=== PATIENT | female | born 1950 | race Caucasian/White ===

== ENCOUNTER 2016-07-10 22:05 | Emergency (ER) | payer BC, MEDICARE ==
[2016-07-10 22:12] VITALS: TEMP 97.5
[2016-07-10] MEDS ORDERED: KETOROLAC 60 MG/2 ML VIAL IVP STA (22:35)
--- NOTE | 2016-07-10 22:38 | ED ---
General Adult HPI - General Chief complaint: Urogenital Stated complaint: poss UTI Time Seen by Provider: 07/10/16 22:10 Source: patient, RN notes reviewed Mode of arrival: ambulatory Limitations: no limitations - History of Present Illness Initial comments: This is a 65-year-old female presents emergency Department stating that since yesterday she has been having dysuria and urinary frequency and urgency. Patient denies any hematuria. Patient also feels as though it is quite a bit of pressure down in her pelvic area. Patient denies any vaginal bleeding or discharge abnormally. Patient states she's noted her stools have been very pasty and black lately. Patient denies taking any medications [id number] or any prescribed medications. Patient denies any back pain. Patient denies any fever or chills. Patient denies any chest pain difficult breathing shortness of breath. Patient denies any nausea vomiting diarrhea. - Related Data Previous Rx's Medication Instructions Recorded Ciprofloxacin HCl [Cipro] 500 mg PO Q12HR #20 tablet 07/11/16 Phenazopyridine [Pyridium] 200 mg PO TID #9 tablet 07/11/16 Allergies Allergy/AdvReac Type Severity Reaction Status Date / Time codeine Allergy Rash/Hives Verified 10/02/15 17:30 Penicillins Allergy Rash/Hives Verified 10/02/15 17:30 nitroglycerin AdvReac Severe DECREASES Verified 10/02/15 17:30 BLOOD PRESSURE Review of Systems ROS Statement: Those systems with pertinent positive or pertinent negative responses have been documented in the HPI. ROS Other: All systems not noted in ROS Statement are negative. Past Medical History Past Medical History: Osteoarthritis (OA), Sleep Apnea/CPAP/BIPAP Additional Past Medical History / Comment(s): bradycardia, pacemaker, no CPAP, back pain History of Any Multi-Drug Resistant Organisms: None Reported Past Surgical History: Back Surgery, Heart Catheterization, Hysterectomy, Pacemaker, Tonsillectomy Additional Past Surgical History / Comment(s): pacemaker, hysterectomy, left wrist PLATE AND SCREWS, BACK SX HANY/PINS, PTCA Past Anesthesia/Blood Transfusion Reactions: No Reported Reaction Type of Cardiac Device: Permanent Pacemaker Device Placement Date:: 8334-6645 gen change, three replacements, most frequent was 2010 Past Psychological History: No Psychological Hx Reported Additional Psychological History / Comment(s): pt stated that upon waking this am felt very dizzy making her nauseated, felt like she was drunk. c/o chest pressure not pain. Smoking Status: Current every day smoker Past Alcohol Use History: None Reported Additional Past Alcohol Use History / Comment(s): Admits to smoking approximately one pack per day for the last 48 years. Past Drug Use History: None Reported - Past Family History Father Additional Family Medical History / Comment(s): at age 36 due to [place] Mother Additional Family Medical History / Comment(s): AGE 81 COPD/EMPHYSEMA, history of colon cancer General Exam - General Exam Comments Initial Comments: GENERAL: Patient is well-developed and well-nourished. Patient is nontoxic and well- hydrated and is in mild distress. ENT: Neck is soft and supple. No significant lymphadenopathy is noted. Oropharynx is clear. Moist mucous membranes. Neck has full range of motion without eliciting any pain. EYES: The sclera were anicteric and conjunctiva were pink and moist. Extraocular movements were intact and pupils were equal round and reactive to light. Eyelids were unremarkable. PULMONARY: Unlabored respirations. Good breath sounds bilaterally. No audible rales rhonchi or wheezing was noted. CARDIOVASCULAR: There is a regular rate and rhythm without any murmurs gallops or rubs. ABDOMEN: Soft and nontender with normal bowel sounds. No palpable organomegaly was noted. There is no palpable pulsatile mass. SKIN: Skin is clear with no lesions or rashes and otherwise unremarkable. NEUROLOGIC: Patient is alert and oriented x3. Cranial nerves II through XII are grossly intact. Motor and sensory are also intact. Normal speech, volume and content. Symmetrical smile. Cerebellar exam grossly intact. MUSCULOSKELETAL: Normal extremities with adequate strength and full range of motion. No lower extremity swelling or edema. No calf tenderness. No CVA tenderness LYMPHATICS: No significant lymphadenopathy is noted PSYCHIATRIC: Normal psychiatric evaluation. Pelvic exam On speculum exam I saw no obvious abnormalities on bimanual exam there did appear to be some fullness to the left adnexal area. I also did a rectal exam the stool was dark but no obvious blood. Limitations: no limitations Course Vital Signs 07/10/16 22:09 Temperature 97.5 F L Pulse Rate 94 Respiratory 20 Rate Blood Pressure 133/77 O2 Sat by Pulse 96 Oximetry Medical Decision Making - Medical Decision Making Ultrasound showed no acute abnormality. Patient a urinary tract infection I gave the patient Pyridium and Rocephin in the emergency department. - Lab Data Result diagrams: 07/10/16 22:45 07/10/16 22:45 Lab Results 07/10/16 07/10/16 07/10/16 Range/Units 22:21 22:45 22:45 WBC 14.1 H (3.8-10.6) k/uL RBC 4.42 (3.80-5.40) m/uL Hgb 13.2 (11.4-16.0) gm/dL Hct 39.7 (34.0-46.0) % MCV 89.9 (80.0-100.0) fL MCH 29.9 (25.0-35.0) pg MCHC 33.3 (31.0-37.0) g/dL RDW 13.4 (11.5-15.5) % Plt Count 285 (150-450) k/uL Neutrophils % 74 % Lymphocytes % 18 % Monocytes % 3 % Eosinophils % 2 % Basophils % 1 % Neutrophils # 10.5 H (1.3-7.7) k/uL Lymphocytes # 2.6 (1.0-4.8) k/uL Monocytes # 0.4 (0-1.0) k/uL Eosinophils # 0.3 (0-0.7) k/uL Basophils # 0.1 (0-0.2) k/uL PT (9.0-12.0) sec INR (<1.1) APTT (22.0-30.0) sec Sodium 139 (137-145) mmol/L Potassium 4.0 (3.5-5.1) mmol/L Chloride 106 (98-107) mmol/L Carbon Dioxide 21 L (22-30) mmol/L Anion Gap 12 mmol/L BUN 13 (7-17) mg/dL Creatinine 0.80 (0.52-1.04) mg/dL Est GFR (MDRD) Af Amer >60 (>60 ml/min/1.73 sqM) Est GFR (MDRD) Non-Af >60 (>60 ml/min/1.73 sqM) Glucose 139 H (74-99) mg/dL Calcium 9.8 (8.4-10.2) mg/dL Total Bilirubin 0.5 (0.2-1.3) mg/dL AST 27 (14-36) U/L ALT 31 (9-52) U/L Alkaline Phosphatase 68 (38-126) U/L Total Protein 7.8 (6.3-8.2) g/dL Albumin 4.3 (3.5-5.0) g/dL Urine Color Yellow Urine Appearance Cloudy H (Clear) Urine pH 6.5 (5.0-8.0) Ur Specific [employer] [place] 1.014 (1.001-1.035) Urine Protein 1+ H (Negative) Urine Glucose (UA) Negative (Negative) Urine Ketones Negative (Negative) Urine Blood Large H (Negative) Urine Nitrite Negative (Negative) Urine Bilirubin Negative (Negative) Urine Urobilinogen <2.0 (<2.0) mg/dL Ur Leukocyte Esterase Large H (Negative) Urine RBC >182 H (0-5) /hpf Urine WBC >182 H (0-5) /hpf Urine WBC Clumps Many H (None) /hpf Urine Mucus Rare H (None) /hpf Stool Occult Blood (Negative) 07/10/16 07/10/16 Range/Units 22:45 23:00 WBC (3.8-10.6) k/uL RBC (3.80-5.40) m/uL Hgb (11.4-16.0) gm/dL Hct (34.0-46.0) % MCV (80.0-100.0) fL MCH (25.0-35.0) pg MCHC (31.0-37.0) g/dL RDW (11.5-15.5) % Plt Count (150-450) k/uL Neutrophils % % Lymphocytes % % Monocytes % % Eosinophils % % Basophils % % Neutrophils # (1.3-7.7) k/uL Lymphocytes # (1.0-4.8) k/uL Monocytes # (0-1.0) k/uL Eosinophils # (0-0.7) k/uL Basophils # (0-0.2) k/uL PT 10.5 (9.0-12.0) sec INR 1.0 (<1.1) APTT 23.9 (22.0-30.0) sec Sodium (137-145) mmol/L Potassium (3.5-5.1) mmol/L Chloride (98-107) mmol/L Carbon Dioxide (22-30) mmol/L Anion Gap mmol/L BUN (7-17) mg/dL Creatinine (0.52-1.04) mg/dL Est GFR (MDRD) Af Amer (>60 ml/min/1.73 sqM) Est GFR (MDRD) Non-Af (>60 ml/min/1.73 sqM) Glucose (74-99) mg/dL Calcium (8.4-10.2) mg/dL Total Bilirubin (0.2-1.3) mg/dL AST (14-36) U/L ALT (9-52) U/L Alkaline Phosphatase (38-126) U/L Total Protein (6.3-8.2) g/dL Albumin (3.5-5.0) g/dL Urine Color Urine Appearance (Clear) Urine pH (5.0-8.0) Ur Specific [employer] [place] (1.001-1.035) Urine Protein (Negative) Urine Glucose (UA) (Negative) Urine Ketones (Negative) Urine Blood (Negative) Urine Nitrite (Negative) Urine Bilirubin (Negative) Urine Urobilinogen (<2.0) mg/dL Ur Leukocyte Esterase (Negative) Urine RBC (0-5) /hpf Urine WBC (0-5) /hpf Urine WBC Clumps (None) /hpf Urine Mucus (None) /hpf Stool Occult Blood Negative (Negative) Disposition Clinical Impression: Urinary tract infection Disposition: HOME SELF-CARE Condition: Good Instructions: Urinary Tract Infection in Women (ED) Prescriptions: Ciprofloxacin HCl [Cipro] 500 mg PO Q12HR #20 tablet Phenazopyridine [Pyridium] 200 mg PO TID #9 tablet Referrals: Maritza Pradhan DO [Primary Care Provider] - 1-2 days Time of Disposition: 00:05
[2016-07-10 22:39] LABS: Appearance,Urine Cloudy (Clear); Bilirubin,Urine Negative (Negative); Glucose,Urine (UA) Negative (Negative); Ketones,Urine Negative (Negative); Leukocyte Esterase,Urine Large (Negative); Mucus,Urine Rare /hpf; Nitrite,Urine Negative (Negative); PH, Urine 6.5 (5.0-8.0); Particle Count 4632; Protein,Urine 1+ (Negative); RBC,Urine >182 /hpf (0-5); Specific Gravity,Urine 1.014 (1.001-1.035); UA Billing (MACRO vs. MICRO) MICRO; Urobilinogen,Urine <2.0 mg/dL (<2.0); WBC,Urine >182 /hpf (0-5)
[2016-07-10] MEDS ORDERED: ACETAMINOPHEN TAB 500 MG TAB PO STA (22:39)
[2016-07-10 23:04] LABS: Basophils # (A) 0.1 k/uL (0-0.2); Basophils % (A) 1 %; CH 30.6; CHCM 34.2; Eosinophils # (A) 0.3 k/uL (0-0.7); Eosinophils % (A) 2 %; HCT 39.7 % (34.0-46.0); HDW 2.71; HGB 13.2 gm/dL (11.4-16.0); Luc # (Auto) 0.26; Luc % (Auto) 2; Lymphocytes # (A) 2.6 k/uL (1.0-4.8); Lymphocytes % (A) 18 %; MCH 29.9 pg (25.0-35.0); MCHC 33.3 g/dL (31.0-37.0); MCV 89.9 fL (80.0-100.0); Mean Platelet Volume 7.1; Monocytes # (A) 0.4 k/uL (0-1.0); Monocytes % (A) 3 %; Neutrophils # (A) 10.5 k/uL (1.3-7.7); Neutrophils % (A) 74 %; RBC 4.42 m/uL (3.80-5.40); RDW 13.4 % (11.5-15.5); WBC 14.1 k/uL (3.8-10.6); WBC (Perox) 14.23
[2016-07-10 23:12] LABS: ALT 31 U/L (9-52); AST 27 U/L (14-36); Alkaline Phosphatase 68 U/L (38-126); Anion Gap 12 mmol/L; Blood Urea Nitrogen 13 mg/dL (7-17); Calcium 9.8 mg/dL (8.4-10.2); Carbon Dioxide 21 mmol/L (22-30); Chloride 106 mmol/L (98-107); Glucose 139 mg/dL (74-99); Non-African American GFR(MDRD) >60 (>60 ml/min/1.73 sqM); Sodium 139 mmol/L (137-145); Total Bilirubin 0.5 mg/dL (0.2-1.3); Total Protein 7.8 g/dL (6.3-8.2)
[2016-07-10 23:15] LABS: Partial Thromboplastin Time 23.9 sec (22.0-30.0); Prothrombin Time 10.5 sec (9.0-12.0)
[2016-07-10] MEDS ORDERED: PHENAZOPYRIDINE 100 MG TAB PO STA (23:29)
--- NOTE | 2016-07-11 00:30 | US ---
EXAM: US Pelvis Complete, Transabdominal. CLINICAL HISTORY: Reason: Pain TECHNIQUE: Real-time transabdominal pelvic ultrasound (complete) with image documentation. COMPARISON: 03/04/15 CT. FINDINGS: Uterus/cervix: Post hysterectomy. Right ovary: Neither ovary is seen. Left ovary: See above. Free fluid: No adnexal mass or free fluid identified. Bladder: Bladder wall likely within normal limits given the underdistended urinary bladder, measuring under 5 mm. IMPRESSION: No specific source of the patient's pelvic pain detected, as above.
[2016-07-11 00:46] VITALS: BP 106/56; PULSE 68; RESP 16
== END 2016-07-11 00:45 | disposition home or self-care (01) ==
LOC: EC 22:05
DX: N39.0 Urinary tract infection, site not specified (principal); F17.200 Nicotine dependence, unspecified, uncomplicated; Z95.0 Presence of cardiac pacemaker; Z88.0 Allergy status to penicillin; Z88.8 Allergy status to other drugs, medicaments and biological substances
CPT/HCPCS: 99284 ×2; 96365 ×2; 36415; 80053; 85025; 85610; 85730; 82272; 81001; 87086; 87077; 87186; 76857; J0696

== ENCOUNTER 2018-05-15 14:05 | Emergency (ER) | payer BC, MEDICARE ==
[2018-05-15 14:12] VITALS: BP 124/81; PULSE 89; RESP 18; TEMP 97.6
--- NOTE | 2018-05-15 14:23 | ED ---
ENT HPI - General Chief complaint: ENT Stated complaint: Throat pain Time Seen by Provider: 05/15/18 14:14 Source: patient, RN notes reviewed Mode of arrival: ambulatory Limitations: no limitations - History of Present Illness Initial comments: 67-year-old female presents emergency Department with chief complaint of worsening symptoms and sore throat for one month. 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 She states she is able to finally take care of herself today and came in for sore throat. Patient reports no recent fevers or chills. Denies any difficulty swallowing. She states it does come and go. She also has associated cough. She is a former smoker. Patient denies any current chest pain or shortness of breath. Patient denies any nausea vomiting diarrhea constipation no reflux symptoms. She has not tried any [id number] cough and cold symptoms. - Related Data Previous Rx's Medication Instructions Recorded Ciprofloxacin HCl [Cipro] 500 mg PO Q12HR #20 tablet 07/11/16 Phenazopyridine [Pyridium] 200 mg PO TID #9 tablet 07/11/16 Azithromycin [Zithromax Z-pack] 0 mg PO DIRECTED #1 pack 05/15/18 guaiFENesin-DM 100-10MG/5ML 10 ml PO TID #1 bottle 05/15/18 [Robitussin DM] predniSONE 50 mg PO DAILY #5 tab 05/15/18 Allergies Allergy/AdvReac Type Severity Reaction Status Date / Time codeine Allergy Rash/Hives Verified 05/15/18 14:12 Penicillins Allergy Rash/Hives Verified 05/15/18 14:12 nitroglycerin AdvReac Severe DECREASES Verified 05/15/18 14:12 BLOOD PRESSURE Review of Systems ROS Statement: Those systems with pertinent positive or pertinent negative responses have been documented in the HPI. ROS Other: All systems not noted in ROS Statement are negative. Past Medical History Past Medical History: Osteoarthritis (OA), Sleep Apnea/CPAP/BIPAP Additional Past Medical History / Comment(s): bradycardia, pacemaker, no CPAP, back pain History of Any Multi-Drug Resistant Organisms: None Reported Past Surgical History: Back Surgery, Heart Catheterization, Hysterectomy, Pacemaker, Tonsillectomy Additional Past Surgical History / Comment(s): pacemaker, hysterectomy, left wrist PLATE AND SCREWS, BACK SX HANY/PINS, PTCA Past Anesthesia/Blood Transfusion Reactions: No Reported Reaction Type of Cardiac Device: Permanent Pacemaker Device Placement Date:: 7508-8194 gen change, three replacements, most frequent was 2010 Past Psychological History: No Psychological Hx Reported Smoking Status: Current every day smoker Past Alcohol Use History: None Reported Past Drug Use History: None Reported - Past Family History Father Additional Family Medical History / Comment(s): at age 36 due to [place] Mother Additional Family Medical History / Comment(s): AGE 81 COPD/EMPHYSEMA, history of colon cancer General Exam Limitations: no limitations General appearance: alert, in no apparent distress Head exam: Present: atraumatic, normocephalic, normal inspection Eye exam: Present: normal appearance, PERRL, EOMI. Absent: scleral icterus, conjunctival injection, periorbital swelling ENT exam: Present: mucous membranes moist, TM's normal bilaterally, normal external ear exam. Absent: normal oropharynx (Mild erythema posterior pharynx) Neck exam: Present: normal inspection, full ROM. Absent: tenderness, meningismus, lymphadenopathy Respiratory exam: Present: normal lung sounds bilaterally. Absent: respiratory distress, wheezes, rales, rhonchi, stridor, chest wall tenderness Cardiovascular Exam: Present: regular rate, normal rhythm, normal heart sounds. Absent: systolic murmur, diastolic murmur, rubs, gallop, clicks GI/Abdominal exam: Present: soft, normal bowel sounds. Absent: distended, tenderness, guarding, rebound, rigid Course Vital Signs 05/15/18 14:09 Temperature 97.6 F Pulse Rate 89 Respiratory 18 Rate Blood Pressure 124/81 O2 Sat by Pulse 98 Oximetry Medical Decision Making - Medical Decision Making 67-year-old female presented for laryngitis. Patient symptoms have been present for 1 month. Patient was given a course of steroids and antibiotics at this time x-rays were obtained which show no acute abnormality. I did explain my concerns for possible laryngeal or esophageal issues including cancer. She is a former smoker. She is advised that she needs to follow up immediately with ENT. Disposition Clinical Impression: Acute laryngitis, Acute pharyngitis Disposition: HOME SELF-CARE Condition: Stable Instructions (If sedation given, give patient instructions): Laryngitis (ED) Additional Instructions: Follow-up with ENT for further evaluation.Please return to the Emergency Department if symptoms worsen or any other concerns. Prescriptions: Azithromycin [Zithromax Z-pack] 0 mg PO DIRECTED #1 pack guaiFENesin-DM 100-10MG/5ML [Robitussin DM] 10 ml PO TID #1 bottle predniSONE 50 mg PO DAILY #5 tab Is patient prescribed a controlled substance at d/c from ED?: No Referrals: Maritza Pradhan DO [Primary Care Provider] - 1-2 days Nilay Cox MD [STAFF PHYSICIAN] - 1-2 days Time of Disposition: 14:46
--- NOTE | 2018-05-15 14:41 | XR ---
EXAMINATION TYPE: XR chest 2V DATE OF EXAM: 05/15/2018 COMPARISON: Chest x-ray August 12, 2014 HISTORY: Cough and chest pain. TECHNIQUE: Frontal and lateral views of the chest are obtained. FINDINGS: There is no focal air space opacity, pleural effusion, or pneumothorax seen. Underlying e mphysematous change is not excluded. The cardiac silhouette size is within normal limits. Dual lead p acemaker is redemonstrated. The osseous structures are somewhat demineralized. IMPRESSION: No acute cardiopulmonary process. No significant change from prior.
--- NOTE | 2018-05-15 14:44 | XR ---
Soft tissue neck HISTORY: Cough, hoarseness 2 views of the neck The airway is patent. Epiglottis shows a normal appearance in profile. Patient is edentulous. Bone mi neralization is reduced. Cervical vertebral bodies show preserved height. There is anterolisthesis gr chad 1 C2-3. Loss of disc height present C3-4, C4-5, C5-6 and C6-7. C7-T1 not well seen. There is face t arthropathy. There is multilevel spondylosis. Prevertebral soft tissues are normal. IMPRESSION: Degenerative disc disease. Airway is patent.
== END 2018-05-15 15:01 | disposition home or self-care (01) ==
LOC: EC 14:05
DX: J04.0 Acute laryngitis (principal); J02.9 Acute pharyngitis, unspecified; G47.30 Sleep apnea, unspecified; Z95.0 Presence of cardiac pacemaker; Z95.818 Presence of other cardiac implants and grafts; Z90.89 Acquired absence of other organs; Z98.61 Coronary angioplasty status; Z87.891 Personal history of nicotine dependence; Z88.5 Allergy status to narcotic agent; Z88.0 Allergy status to penicillin; Z88.8 Allergy status to other drugs, medicaments and biological substances
CPT/HCPCS: 70360; 71046; 99283

== ENCOUNTER 2018-06-27 13:51 | Inpatient (IN) | payer MEDICARE ==
[2018-06-27] MEDS ORDERED: IPRATROPIUM-ALBUTEROL 3 ML NEB INHALATION STA (14:10)
--- NOTE | 2018-06-27 14:27 | ED ---
Chest Pain HPI - General Chief Complaint: Chest Pain Stated Complaint: chest pain Time Seen by Provider: 06/27/18 13:58 Source: patient, RN notes reviewed Mode of arrival: EMS Limitations: no limitations - History of Present Illness Initial Comments: 67-year-old female presenting for evaluation of chest pain, chest pain began proximally 4 hours prior to arrival. She has no history of CAD, no history of diabetes or hypertension. She was given aspirin and nitroglycerin prior to arrival by EMS. Pain initially began as dull substernal chest pressure. She states that at the time my evaluation her pain is resolved, she has some mild residual chest tightness. - Related Data Home Medications Medication Instructions Recorded Confirmed No Known Home Medications 06/27/18 06/27/18 Allergies Allergy/AdvReac Type Severity Reaction Status Date / Time codeine Allergy Rash/Hives Verified 06/27/18 14:17 Penicillins Allergy Rash/Hives Verified 06/27/18 14:17 nitroglycerin AdvReac Severe DECREASES Verified 06/27/18 14:17 BLOOD PRESSURE Review of Systems ROS Statement: Those systems with pertinent positive or pertinent negative responses have been documented in the HPI. ROS Other: All systems not noted in ROS Statement are negative. Past Medical History Past Medical History: Osteoarthritis (OA), Sleep Apnea/CPAP/BIPAP Additional Past Medical History / Comment(s): bradycardia, pacemaker, no CPAP, back pain History of Any Multi-Drug Resistant Organisms: None Reported Past Surgical History: Back Surgery, Heart Catheterization, Hysterectomy, Pacemaker, Tonsillectomy Additional Past Surgical History / Comment(s): pacemaker, hysterectomy, left wrist PLATE AND SCREWS, BACK SX HANY/PINS, PTCA Past Anesthesia/Blood Transfusion Reactions: No Reported Reaction Type of Cardiac Device: Permanent Pacemaker Device Placement Date:: 5928-3120 gen change, three replacements, most frequent was 2010 Past Psychological History: No Psychological Hx Reported Smoking Status: Current every day smoker Past Alcohol Use History: None Reported Past Drug Use History: None Reported - Past Family History Father Additional Family Medical History / Comment(s): at age 36 due to [place] Mother Additional Family Medical History / Comment(s): AGE 81 COPD/EMPHYSEMA, history of colon cancer General Exam Limitations: no limitations General appearance: alert, in no apparent distress Head exam: Present: atraumatic, normocephalic Eye exam: Present: normal appearance, PERRL ENT exam: Present: normal exam Neck exam: Present: normal inspection. Absent: tenderness, meningismus Respiratory exam: Present: wheezes (Spastic cough). Absent: respiratory distress Cardiovascular Exam: Present: regular rate, normal rhythm GI/Abdominal exam: Present: soft, normal bowel sounds. Absent: distended, tenderness, guarding, rebound, rigid Extremities exam: Present: normal inspection, normal capillary refill. Absent: pedal edema, calf tenderness Neurological exam: Present: alert, oriented X3, CN II-XII intact. Absent: motor sensory deficit Psychiatric exam: Present: normal affect, normal mood Skin exam: Present: warm, dry, intact. Absent: cyanosis, diaphoretic Course Vital Signs 06/27/18 06/27/18 06/27/18 14:00 14:04 14:10 Temperature 97.7 F Pulse Rate 61 56 L Respiratory 12 16 Rate Blood Pressure 111/72 111/72 O2 Sat by Pulse 96 96 Oximetry 06/27/18 06/27/18 06/27/18 14:20 14:25 14:30 Temperature Pulse Rate 59 L Respiratory Rate Blood Pressure O2 Sat by Pulse 98 99 Oximetry 06/27/18 06/27/18 06/27/18 14:34 14:50 15:00 Temperature Pulse Rate 59 L 71 77 Respiratory 20 27 H Rate Blood Pressure 103/64 103/64 O2 Sat by Pulse 93 L 99 Oximetry 06/27/18 06/27/18 06/27/18 15:10 15:20 15:30 Temperature Pulse Rate 62 61 64 Respiratory 16 16 14 Rate Blood Pressure 109/68 112/67 112/67 O2 Sat by Pulse 94 L 90 L 86 L Oximetry 06/27/18 06/27/18 06/27/18 15:40 15:50 16:00 Temperature Pulse Rate 63 62 64 Respiratory 16 13 16 Rate Blood Pressure 110/61 107/62 107/62 O2 Sat by Pulse 89 L 90 L 93 L Oximetry - Reevaluation(s) Reevaluation #1: 06/27/18 1407 EKG: Sinus bradycardia, rate 56, MO interval 170, QRS duration 72, QTC 413, no ST segment changes Reevaluation #2: 06/27/18 1503 EKG repeated with increasing chest pain, sinus bradycardia, rate of 57, MO interval 174, QRS duration 74, QTC 412, no definitive signs of ischemia. Chest Pain MDM - MDM 67-year-old female presenting for evaluation of chest pain. Chest pain is chest tightness and pressure. Initial EKG nonischemic, chest x-ray negative for acute cardiopulmonary disease, normal CBC, normal CMP, initial troponin is negative. Given the patient's risk factors, she will be kept in observation, serial cardiac enzymes, telemetry, cardiology consultation. Patient is evaluated by admitting physician Dr. Linda in the emergency department. Disposition Clinical Impression: Chest pain Disposition: ADMITTED IP TO THIS HOSP Condition: Stable Is patient prescribed a controlled substance at d/c from ED?: No Referrals: Maritza Pradhan DO [Primary Care Provider] - 1-2 days Decision to Admit Reason: Admit from EC Decision Date: 06/27/18 Decision Time: 16:50
[2018-06-27 14:47] LABS: Basophils # (A) 0.1 k/uL (0-0.2); Basophils % (A) 1 %; Eosinophils # (A) 0.3 k/uL (0-0.7); Eosinophils % (A) 4 %; Lymphocytes # (A) 2.2 k/uL (1.0-4.8); Lymphocytes % (A) 29 %; MCH 29.2 pg (25.0-35.0); MCHC 33.3 g/dL (31.0-37.0); MCV 87.5 fL (80.0-100.0); Mean Platelet Volume 8.2; Monocytes # (A) 0.3 k/uL (0-1.0); Monocytes % (A) 5 %; Neutrophils # (A) 4.6 k/uL (1.3-7.7); Neutrophils % (A) 61 %; Platelet Count 303 k/uL (150-450); RBC 4.46 m/uL (3.80-5.40); RDW 14.5 % (11.5-15.5); WBC 7.6 k/uL (3.8-10.6)
[2018-06-27 14:50] LABS: ALT 24 U/L (9-52); AST 21 U/L (14-36); Albumin 3.9 g/dL (3.5-5.0); Alkaline Phosphatase 73 U/L (38-126); Anion Gap 7 mmol/L; Blood Urea Nitrogen 12 mg/dL (7-17); Calcium 9.5 mg/dL (8.4-10.2); Carbon Dioxide 23 mmol/L (22-30); Chloride 109 mmol/L (98-107); Glucose 102 mg/dL (74-99); Lipase 62 U/L (23-300); Magnesium 1.8 mg/dL (1.6-2.3); Potassium 4.2 mmol/L (3.5-5.1); Sodium 139 mmol/L (137-145); Total Bilirubin 0.4 mg/dL (0.2-1.3); Total Protein 6.8 g/dL (6.3-8.2)
--- NOTE | 2018-06-27 14:50 | XR ---
EXAMINATION TYPE: XR chest 2V DATE OF EXAM: 06/27/2018 COMPARISON: Chest x-ray May 15, 2018 HISTORY: Chest pain. TECHNIQUE: Frontal and lateral views of the chest are obtained. FINDINGS: Underlying emphysematous change is suspected. There is no focal air space opacity, pleural effusion, or pneumothorax seen. The cardiac silhouette size remains within normal limits with dual l ead pacemaker. The osseous structures are intact. IMPRESSION: No acute cardiopulmonary process. No significant change from prior.
[2018-06-27 14:54] LABS: INR 0.9 (<1.2); Partial Thromboplastin Time 25.5 sec (22.0-30.0); Prothrombin Time 10.1 sec (9.0-12.0)
[2018-06-27] MEDS ORDERED: MAG HYDROX/AL HYDROX/SIMETH 30 ML, HYOSCYAMINE ELIXIR 10 ML, CIMETIDINE HCL 300 MG PO STA ×3 (14:59)
[2018-06-27] MEDS ORDERED: MORPHINE SULFATE 4 MG/0.8 ML SYRINGE (INJ) IVP STA (14:59)
[2018-06-27] MEDS ORDERED: HYDROmorphone 1 MG/ML 1 ML SYRINGE IVP STA (15:00)
[2018-06-27] MEDS ORDERED: HYDROmorphone 0.5 MG/0.5 ML SYRINGE IVP STA (16:41)
[2018-06-27] MEDS ORDERED: ONDANSETRON 4 MG/2 ML VIAL IVP PRN (16:43)
[2018-06-27] MEDS ORDERED: NALOXONE 0.4 MG/ML 1 ML VIAL IV PRN (16:43)
[2018-06-27] MEDS ORDERED: PANTOPRAZOLE 40 MG/10 ML VIAL IV STA (16:52)
--- NOTE | 2018-06-27 17:52 | CT ---
EXAMINATION TYPE: CT angio chest DATE OF EXAM: 06/27/2018 5:25 PM COMPARISON: None HISTORY: Chest pressure. CT DLP: 281.5 mGycm Automated exposure control for dose reduction was used. CONTRAST: CTA scan of the thorax is performed with IV Contrast, patient injected with 69 mL of Isovue 370, pulm onary embolism protocol. There are 3-D post processed images.. FINDINGS: There is mild pulmonary emphysema. There is subpleural coarse reticular density in both lungs probabl y due to pulmonary fibrosis. There is no evidence of a pulmonary mass. There is no pleural effusion. Heart size is normal. There is no pericardial effusion. There is no mediastinal adenopathy. There are no hilar masses. There is normal contrast opacification of the pulmonary arteries. There are no filling defects. The b giselle thorax appears intact. IMPRESSION: NO EVIDENCE OF PULMONARY EMBOLISM. MILD EMPHYSEMA AND PULMONARY FIBROTIC CHANGES.
[2018-06-27] MEDS ORDERED: ALPRAZolam 0.25 MG TAB PO PRN (19:04)
[2018-06-27] MEDS ORDERED: TEMAZEPAM 15 MG CAP PO PRN (19:04)
[2018-06-27] MEDS ORDERED: ACETAMINOPHEN TAB 500 MG TAB PO PRN (19:04)
[2018-06-27 20:15] LABS: Appearance,Urine Clear (Clear); Bilirubin,Urine Negative (Negative); Blood,Urine Negative (Negative); Color,Urine Colorless; Glucose,Urine (UA) Negative (Negative); Ketones,Urine Negative (Negative); Leukocyte Esterase,Urine Negative (Negative); Nitrite,Urine Negative (Negative); PH, Urine 6.5 (5.0-8.0); Protein,Urine Negative (Negative); Specific Gravity,Urine 1.004 (1.001-1.035); Urobilinogen,Urine <2.0 mg/dL (<2.0)
--- NOTE | 2018-06-27 21:12 | HP ---
HISTORY AND PHYSICAL DATE OF SERVICE: 06/27/2018 CHIEF COMPLAINT: Chest pain. HISTORY OF PRESENT ILLNESS: This 67-year-old woman with a past medical history of multiple medical problems including DJD, history of sleep apnea, history of bradycardia, history of pacemaker, history of CPAP, back pain, DJD, cardiac catheterization and as well as arthrectomy, being followed by Dr. Pradhan in the outpatient setting, was complaining of severe chest pain, chest pain felt in the anterior part of the chest. Patient felt heavy and felt like somebody was sitting on the chest. Subsequently, patient also had difficulty in the throat also. The patient came to [facility] and was admitted for further evaluation and treatment. EMT administered aspirin, nitro, the troponins are negative. First troponins are negative and the EKG did not show any acute abnormality except some bradycardia. Patient also had a CT angio which showed no evidence of pulmonary embolism. There is no history of fever, rigors or chills. No history of headache, loss of consciousness or seizures. The patient also complaining of abdominal pain and diarrhea for the last 1 month, especially with some increased gastrocolic reflex. PAST MEDICAL HISTORY: History of sleep apnea, DJD, history of pacemaker, history of back pain, DJD. MEDICATIONS: Prior to admission include home medications are none. ALLERGIES: CODEINE, PENICILLIN, NITRO. FAMILY HISTORY: History of myocardial infarction in the family. SOCIAL HISTORY: History of smoking. No history of alcohol intake. The patient apparently taking care of four teenage kids and the patient is under some stress because of apparent lack of parental support. REVIEW OF SYSTEMS: ENT: No diminished hearing. No diminished vision. CARDIOVASCULAR: As mentioned earlier. RESPIRATORY: As mentioned earlier. GI no nausea or vomiting. no dysuria. NERVOUS SYSTEM: No numbness or weakness. ALLERGY/IMMUNOLOGY: No asthma or hayfever. MUSCULOSKELETAL: As mentioned earlier. HEMATOLOGY/ONCOLOGY: No history of anemia. ENDOCRINE: No history of diabetes or hypothyroidism. Constitutional: As mentioned earlier. Dermatology: Negative. Rheumatology: Negative. Psychiatry: As mentioned earlier. PHYSICAL EXAM: Patient is alert, oriented x3. Pulse is 58, blood pressure 109/77. Respiratory rate 13, temperature normal. Pulse ox 97% on room air. HEENT: Conjunctivae normal. NECK: No jugular venous distention. CARDIOVASCULAR: S1, S2 muffled. RESPIRATORY: Breath sounds diminished in the bases. No rhonchi and no crackles. ABDOMEN: Soft, obese, nontender. No mass palpable. LEGS no edema. No swelling. NERVOUS SYSTEM: Higher functions as mentioned earlier. Moves all 4 limbs. No focal deficits. Lymphatics: No lymph nodes palpable in the neck, axillae or groin. JOINTS: No active deforming arthropathy. SKIN: Noted. No ulcer. No rash. No bleeding. LABS: CBC within normal limits. Sodium 130. Potassium 4.2. ASSESSMENT: 1. Chest pain possible unstable angina. 2. Acute to subacute diarrhea, rule out infective diarrhea. 3. History of degenerative joint disease. 4. History of sleep apnea. 5. History of bradycardia status post pacemaker. 6. History of coronary artery disease with cardiac and arthrectomy previously. 7. History of pacemaker. 8. Tonsillectomy. 9. Social stressors. 10.Nicotine dependence. RECOMMENDATIONS AND DISCUSSION: In this 67-year-old woman who presented with multiple complex medical issues, we will monitor the patient closely, continue the current medications, management and symptomatic treatment. Otherwise, at this time, I recommend to monitor the patient closely and acute coronary syndrome protocol. Cardiology consultation. Rule out myocardial infarction. The patient will need further workup including either a stress test or cardiac catheterization. The patient also has some diarrhea. I would also recommend a Gastroenterology consultation as an outpatient. We will check C difficile at this time. Otherwise, continue to monitor. Guarded prognosis because of multiple complex medical issues. Further recommendations to follow. A copy of dictation being forwarded to Dr. Pradhan who is the primary physician. FROILAN / KHLOE: [id number] /
[2018-06-27] MEDS: HEPARIN SODIUM,PORCINE 5,000 UNIT/ML 1 ML VIAL SQ SCH (23:05)
[2018-06-28 09:37] LABS: Basophils # (A) 0.1 k/uL (0-0.2); Basophils % (A) 1 %; Eosinophils # (A) 0.3 k/uL (0-0.7); Eosinophils % (A) 6 %; HCT 38.7 % (34.0-46.0); HGB 12.8 gm/dL (11.4-16.0); Lymphocytes # (A) 1.7 k/uL (1.0-4.8); Lymphocytes % (A) 31 %; MCH 29.6 pg (25.0-35.0); MCHC 33.1 g/dL (31.0-37.0); MCV 89.5 fL (80.0-100.0); Mean Platelet Volume 7.8; Monocytes # (A) 0.3 k/uL (0-1.0); Monocytes % (A) 5 %; Neutrophils % (A) 55 %; Platelet Count 267 k/uL (150-450); RBC 4.32 m/uL (3.80-5.40); RDW 14.1 % (11.5-15.5); WBC 5.5 k/uL (3.8-10.6)
[2018-06-28 10:09] LABS: Calcium 9.2 mg/dL (8.4-10.2); Potassium 4.5 mmol/L (3.5-5.1)
[2018-06-28] MEDS: PANTOPRAZOLE 40 MG/10 ML VIAL IV SCH (10:09)
[2018-06-28] MEDS: HEPARIN SODIUM,PORCINE 5,000 UNIT/ML 1 ML VIAL SQ SCH ×2 (10:09→20:50)
[2018-06-28] MEDS ORDERED: DOBUTamine DRIP for NUC MED 500 MG in DEXTROSE/WATER 1 250ML.BAG IV ONE (10:16)
[2018-06-28] MEDS: HYDROmorphone 0.5 MG/0.5 ML SYRINGE IVP PRN (10:16)
[2018-06-28] MEDS ORDERED: BISACODYL 5 MG TABLET.DR PO STA (11:59)
--- NOTE | 2018-06-28 12:04 | P.CONS ---
History of Present Illness - Reason for Consult Consult date: 06/28/18 Epigastric chest pain nonbloody diarrhea Requesting physician: Maxim Linda - Chief Complaint Chest pain - History of Present Illness 67-year-old female with a history of pacemaker bradycardia COPD CAD with angioplasty sleep apnea CPAP chronic back pain admitted with multiple complaints including chest pain epigastric discomfort as well as postprandial nonbloody diarrhea several times a day for the last 4-6 weeks. EKG showed no acute abnormality. First the troponins were negative. CT showed no evidence of pulmonary embolus and. Patient states cardiology is evaluating her pacemaker. In regards to diarrhea patient's been having multiple nonbloody bowel movements especially after eating for 4-6 weeks' duration with minimal abdominal discomfort. She cares for 4 grandchildren makes it difficult to seek medical care in the outpatient setting. She has no history of diarrhea in fact she has a history of constipation. In regards to her epigastric chest pain she's had increased GERD-like symptoms preceding admission. No emesis. No current PPI therapy. No weight loss. She is a history of EGD colonoscopy but it's remote at least 10 years ago. Denies fever or chills. No recent travels. No recent antibiotics. No sick contacts. White count 5.5-7.6. Hemoglobin 12.8. INR 0.9. BUN 12 creatinine 0.7. Troponin 3 less than 0.012. LFTs normal. Lipase 62. Review of Systems Constitutional: Denies fever, chills, sweats, weight gain, or loss. HEENT: Negative for migraines, blurred vision or loss, earaches, drainage, tinnitus, oral mucosal lesions, dysphagia, or odynophagia. CARDIAC: Positive denies for chest pain, arrhythmias, or palpitation. RESPIRATORY: Negative for shortness of breath, hemoptysis, cough, or sputum production. GI: See HPI for pertinent findings. : Negative for hematuria, urgency, frequency, polyuria, or dysuria. GYNc: Negative vaginal discharge. MUSCULOSKELETAL: Negative for muscle aches, swelling, arthritis, and arthralgias. NEUROLOGIC: Negative for stroke or TIA. ENDOCRINE: Negative for thyroid problems. SKIN: Negative for rash or itching. PSYCHIATRIC: Negative history for depression and anxiety Past Medical History Past Medical History: Osteoarthritis (OA), Sleep Apnea/CPAP/BIPAP Additional Past Medical History / Comment(s): bradycardia, pacemaker, no CPAP, back pain History of Any Multi-Drug Resistant Organisms: None Reported Past Surgical History: Back Surgery, Heart Catheterization, Hysterectomy, Pacemaker, Tonsillectomy Additional Past Surgical History / Comment(s): pacemaker, hysterectomy, left wrist PLATE AND SCREWS, BACK SX HANY/PINS, PTCA Past Anesthesia/Blood Transfusion Reactions: No Reported Reaction Type of Cardiac Device: Permanent Pacemaker Device Placement Date:: 5337-6463 gen change, three replacements, most frequent was 2010 Smoking Status: Former smoker - Past Family History Father Additional Family Medical History / Comment(s): at age 36 due to [place] Mother Additional Family Medical History / Comment(s): AGE 81 COPD/EMPHYSEMA, history of colon cancer Medications and Allergies Home Medications Medication Instructions Recorded Confirmed Type No Known Home Medications 06/27/18 06/27/18 History Allergies Allergy/AdvReac Type Severity Reaction Status Date / Time codeine Allergy Rash/Hives Verified 06/27/18 22:19 Penicillins Allergy Rash/Hives Verified 06/27/18 22:19 nitroglycerin AdvReac Severe DECREASES Verified 06/27/18 22:19 BLOOD PRESSURE Physical Exam Vitals: Vital Signs Temp Pulse Pulse Pulse Pulse Resp BP 06/28/18 08:00 97.6 F 65 18 06/28/18 03:56 98.2 F 50 L 15 06/28/18 03:27 15 06/27/18 22:42 15 06/27/18 22:16 98.1 F 62 15 06/27/18 21:30 55 L 16 105/74 06/27/18 21:00 53 L 14 110/74 06/27/18 20:30 55 L 16 100/75 06/27/18 20:00 54 L 16 102/82 06/27/18 19:30 52 L 16 94/62 06/27/18 17:39 58 L 13 109/73 06/27/18 16:00 64 16 107/62 06/27/18 15:50 62 13 107/62 06/27/18 15:40 63 16 110/61 06/27/18 15:30 64 14 112/67 06/27/18 15:20 61 16 112/67 06/27/18 15:10 62 16 109/68 06/27/18 15:00 77 27 H 103/64 06/27/18 14:50 71 20 103/64 06/27/18 14:34 59 L 06/27/18 14:30 06/27/18 14:25 59 L 06/27/18 14:20 06/27/18 14:10 111/72 06/27/18 14:04 97.7 F 56 L 16 111/72 06/27/18 14:00 61 12 BP Pulse Ox 06/28/18 08:00 113/79 96 06/28/18 03:56 91/54 96 06/28/18 03:27 06/27/18 22:42 06/27/18 22:16 116/70 99 06/27/18 21:30 93 L 06/27/18 21:00 93 L 06/27/18 20:30 97 06/27/18 20:00 95 06/27/18 19:30 92 L 06/27/18 17:39 97 06/27/18 16:00 93 L 06/27/18 15:50 90 L 06/27/18 15:40 89 L 06/27/18 15:30 86 L 06/27/18 15:20 90 L 06/27/18 15:10 94 L 06/27/18 15:00 99 06/27/18 14:50 93 L 06/27/18 14:34 06/27/18 14:30 99 06/27/18 14:25 06/27/18 14:20 98 06/27/18 14:10 06/27/18 14:04 96 06/27/18 14:00 96 Intake and Output 06/27/18 06/28/18 06/28/18 22:59 06:59 14:59 Other: Voiding Method Toilet Toilet Toilet # Voids 2 General appearance: The patient is alert, oriented, in no acute distress. HET: Head is normocephalic and atraumatic. Pupils are equal and reactive. Oropharynx is clear without lesions. Neck: Supple without lymphadenopathy. Trachea midline. Heart: S1 S2. Regular rate and rhythm. Lungs: No crackles or wheezes are heard. Abdomen: Soft, mild midepigastric tenderness, nondistended with bowel sounds. No peritoneal signs. No palpable organomegaly or masses. Extremities: Normal skin color and turgor. No cyanosis, rash, ulceration, clubbing, or edema. Radial and pedal pulses are 2/4 bilaterally. Neurological: No focal deficits. Strength and sensation are grossly intact. Results CBC & Chem 7: 06/28/18 08:41 06/28/18 08:41 Labs: Abnormal Lab Results - Last 24 Hours (Table) 06/27/18 06/28/18 Range/Units 14:13 08:41 Chloride 109 H 112 H (98-107) mmol/L Carbon Dioxide 19 L (22-30) mmol/L Glucose 102 H 108 H (74-99) mg/dL CT scan - chest: report reviewed (Dr. Garibay) Assessment and Plan (1) Diarrhea Narrative/Plan: 67-year-old female with a history of pacemaker bradycardia CAD with previous angioplasty presents with multiple symptoms of chest pain epigastric pain and indigestion as well as postprandial nonbloody diarrhea for 6 weeks' duration. Possible underlying GERD exacerbation possible IBS-D possible self limiting infectious colitis possible collagenous colitis. Current Visit: Yes Status: Acute Code(s): R19.7 - DIARRHEA, UNSPECIFIED SNOMED Code(s): 41039535 (2) Epigastric pain Current Visit: Yes Status: Acute Code(s): R10.13 - EPIGASTRIC PAIN SNOMED Code(s): 03132645 (3) Chest pain Current Visit: Yes Status: Acute Code(s): R07.9 - CHEST PAIN, UNSPECIFIED SNOMED Code(s): 13045982 Plan: 1. Patient states her pacemaker is being evaluated today. If agreeable with cardiology will proceed with EGD colonoscopy tomorrow. Patient requests inpatient endoscopic exams secondary to her personal needs to be at home to care for her 4 grandchildren. Clear liquid diet today. Stool studies reviewed including lactoferrin stool culture Clostridium difficile and Giardia antigen. 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 The patient has indicated understanding and acceptance of the risks and procedures discussed. Thank you for this kind referral and the opportunity to participate in the care of your patient. This consultation was discussed with Dr. Garibay. The impression and plan of care have been directed as dictated.
--- NOTE | 2018-06-28 12:38 | ECHOF ---
Referral Reason: MEASUREMENTS -------- HEIGHT: 177.8 cm WEIGHT: 76.7 kg BP: RVIDd: 3.3 cm (< 3.3) IVSd: 1.2 cm (0.6 - 1.1) LVIDd: 3.4 cm (3.9 - 5.3) LVPWd: 1.1 cm (0.6 - 1.1) IVSs: 1.3 cm LVIDs: 1.6 cm LVPWs: 1.3 cm LAESV Index (A-L): 9.20 ml/m Ao Diam: 2.2 cm (2.0 - 3.7) AV Cusp: 1.6 cm (1.5 - 2.6) LA Diam: 2.8 cm (2.7 - 3.8) MV EXCURSION: 10.412 mm (> 18.000) MV EF SLOPE: 68 mm/s (70 - 150) EPSS: 0.2 cm MV E Js: 0.75 m/s MV DecT: 269 ms MV A Js: 0.76 m/s MV E/A Ratio: 0.99 AV maxP.60 mmHg AV meanP.77 mmHg RAP: 5.00 mmHg RVSP: 42.88 mmHg FINDINGS -------- Pacerwire seen in RV and RA. This was a technically good study. The left ventricular size is normal. There is borderline concentric left ventricular hypertrophy. Overall left ventricular systolic function is normal with, an EF between 55 - 60 %. The right ventricle is mildly enlarged. Normal LA size by volume 22+/-6 ml/m2. The right atrial size is normal. Aortic valve is trileaflet and is mildly thickened. Peak/mean gradient across the Aortic Valve is 1 5.60mmHg / 9.77mmHg. The mitral valve leaflets are mildly thickened. Mild mitral annular calcification present. Mild m itral regurgitation is present. Mild tricuspid regurgitation present. The right ventricular systolic pressure, as measured by Doppl er, is 42.88mmHg. There is no pulmonic regurgitation present. The aortic root size is normal. Normal inferior vena cava with normal inspiratory collapse consistent with estimated right atrial pre ssure of 5 mmHg. There is no pericardial effusion. CONCLUSIONS -------- 1. Pacerwire seen in RV and RA. 2. This was a technically good study. 3. The left ventricular size is normal. 4. There is borderline concentric left ventricular hypertrophy. 5. Overall left ventricular systolic function is normal with, an EF between 55 - 60 %. 6. The right ventricle is mildly enlarged. 7. Normal LA size by volume 22+/-6 ml/m2. 8. The right atrial size is normal. 9. Aortic valve is trileaflet and is mildly thickened. 10. Peak/mean gradient across the Aortic Valve is 15.60mmHg / 9.77mmHg. 11. The mitral valve leaflets are mildly thickened. 12. Mild mitral annular calcification present. 13. Mild mitral regurgitation is present. 14. Mild tricuspid regurgitation present. 15. The right ventricular systolic pressure, as measured by Doppler, is 42.88mmHg. 16. There is no pulmonic regurgitation present. 17. The aortic root size is normal. 18. Normal inferior vena cava with normal inspiratory collapse consistent with estimated right atrial pressure of 5 mmHg. 19. There is no pericardial effusion. ESCAPE WHEEL TOOTH CUTTER: Frieda Aguilar RDCS
--- NOTE | 2018-06-28 12:49 | P.STRESS ---
- Stress Test Note Stress Test Results/Findings: Exam Performed: dobutamine stress echo Exam Date: 06/28/18 Reason for Exam: CHEST PAIN Height: 5 ft 9 in Weight: 78 kg Protocol: DSE Stage: 3 Duration of Exercise: 8:45 Resting Heart Rate: 50 Resting Blood Pressure: 110/64 Maximum Achieved Heart Rate: 133 Maximum Achieved Blood Pressure: 130/47 85% PMHR: 130 100% PMHR: 153 METS: NA Technologist Comment: Stress Test Results/Findings: This is a 67-year-old female with history of permanent pacemaker and family history of ischemic heart disease who was admitted to the hospital with chest pain and palpitations. Enzymes and EKGs were negative. Stress data: Baseline EKG showed sinus bradycardia with a blood pressure of 110/64 with pulse rate of 50. Patient to was started on IV dobutamine and was titrated to maximum 30 mics. Patient achieved a maximal heart rate of 133 with a blood pressure for 113/54. Patient did not express any chest pain. EKGs taken during and after the dobutamine infusion did not reveal any significant changes from the baseline. Patient did not experience any chest pain. Echo data: Baseline echo images show normal wall motion and thickening. Exercise echo images showed augmentation of wall motion and thickening in all the segments. Final impression #1. Negative stress test #2. Negative stress echo.
--- NOTE | 2018-06-28 12:57 | P.CRDCN ---
History of Present Illness History of present illness: This is a pleasant 67-year-old female past medical history significant for sick sinus syndrome s/p permanent pacemaker implantation approximately 7 years ago in [place], obstructive sleep apnea and former nicotine dependence. She has not been seen by a production line worker in many years and has not had her device interrogated in over 5 years due to no insurance or money to pay for Dr. anderson. We have been asked to see her in consultation for chest pain. She presented to the hospital yesterday with a sharp pain in her chest that came on all of a sudden in the left precordial region. There was no radiation to the arm, back, neck or jaw. There was some associated nausea but no vomiting. She denies associated shortness of breath, dizziness or palpitations. The pain lasted approximately 4 hours and the intensity lessened, however she still feels a dull ache in her chest and sometimes in her lower left flank region. She also complains of diarrhea off and on for the last 6 weeks. She is under significant amount of stress at home caring for her 4 grandchildren and multiple domestic issues with her own children. She is tearful and states her stress is extremely high lately. EKG on arrival reveals sinus bradycardia heart rate of 57. Chest x-ray is negative for an acute cardiopulmonary process, underlying emphysematous changes noted. Evidence of dual lead pacemaker in place. CTA chest is negative for pulmonary embolism, mild emphysema and pulmonary fibrotic changes noted. Laboratory data reviewed, WBC 5.5, hemoglobin 12.8, platelets 267, sodium 140, potassium 4.5, creatinine 0.83, magnesium 1.8, cardiac enzymes negative 3, NT proBNP 73. She currently takes no daily medications. At the time of my exam: CONSTITUTIONAL: Denies fever. Denies chills. EYES: Denies blurred vision. Denies vision changes. Denies eye pain. EARS, NOSE, MOUTH & THROAT: Denies headache. Denies sore throat. Denies ear pain. CARDIOVASCULAR: Complains of chest pain. Denies shortness of breath. Denies orthopnea. Denies PND. Denies palpitations. RESPIRATORY: Denies cough. GASTROINTESTINAL: Denies abdominal pain. Denies diarrhea. Denies constipation. Denies nausea. Denies vomiting. MUSCULOSKELETAL: Denies myalgias. INTEGUMENTARY: Denies pruitis. Denies rash. NEUROLOGIC: Denies numbness. Denies tingling. Denies weakness. PSYCHIATRIC: Denies anxiety. Denies depression. ENDOCRINE: Denies fatigue. Denies weight change. Denies polydipsia. Denies polyurina. GENITOURINARY: Denies burning, hematuria or urgency with micturation. HEMATOLOGIC: Denies history of anemia. Denies bleeding. Blood pressure 110/74 heart rate 57 afebrile maintaining oxygen saturation on room air GENERAL: This is a 67-year-old female in no apparent distress at the time of my examination. HEENT: Head is atraumatic, normocephalic. Pupils are equal, round. Sclerae anicteric. Conjunctivae are clear. Mucous membranes of the mouth are moist. Neck is supple. There is no jugular venous distention. No carotid bruit is heard. LUNGS: Clear to auscultation no wheezes, rales or rhonchi. No chest wall tenderness is noted on palpation or with deep breathing. HEART: Regular rate and rhythm with systolic ejection murmur at the base, no rubs or gallops. S1 and S2 heard. ABDOMEN: Soft, nontender. Bowel sounds are heard. No organomegaly noted. EXTREMITIES: No evidence of peripheral edema and no calf tenderness noted. VASCULAR: Radial and dorsalis pedis pulses palpated, no evidence of clubbing. NEUROLOGIC: Patient is awake, alert and oriented x3. ASSESSMENT Chest pain, atypical for angina. An acute coronary event has been ruled out. History of sick sinus syndrome status post permanent pacemaker implantation, noncompliant with pacemaker checks. Persistent diarrhea, has been evaluated by GI and is going for an EGD tomorrow Former nicotine dependence PLAN An acute coronary event has been ruled out. Obtain 2-D echocardiogram and Doppler study to assess cardiac structure and function. Perform dobutamine stress echocardiogram to assess her stress induced cardiac ischemia. Interrogate Vigilos device. Further recommendations to follow based upon clinical course. Thank you kindly for this consultation. Nurse Practitioner note has been reviewed, I agree with a documented findings and plan of care. Patient was seen and examined. Past Medical History Past Medical History: Osteoarthritis (OA), Sleep Apnea/CPAP/BIPAP Additional Past Medical History / Comment(s): bradycardia, pacemaker, no CPAP, back pain History of Any Multi-Drug Resistant Organisms: None Reported Past Surgical History: Back Surgery, Heart Catheterization, Hysterectomy, Pacemaker, Tonsillectomy Additional Past Surgical History / Comment(s): pacemaker, hysterectomy, left wr ist PLATE AND SCREWS, BACK SX HANY/PINS, PTCA Past Anesthesia/Blood Transfusion Reactions: No Reported Reaction Type of Cardiac Device: Permanent Pacemaker Device Placement Date:: 8555-6075 gen change, three replacements, most frequent was 2010 Smoking Status: Former smoker - Past Family History Father Additional Family Medical History / Comment(s): at age 36 due to [place] Mother Additional Family Medical History / Comment(s): AGE 81 COPD/EMPHYSEMA, history of colon cancer Medications and Allergies Home Medications Medication Instructions Recorded Confirmed Type No Known Home Medications 06/27/18 06/27/18 History Allergies Allergy/AdvReac Type Severity Reaction Status Date / Time codeine Allergy Rash/Hives Verified 06/27/18 22:19 Penicillins Allergy Rash/Hives Verified 06/27/18 22:19 nitroglycerin AdvReac Severe DECREASES Verified 06/27/18 22:19 BLOOD PRESSURE Physical Exam Vitals: Vital Signs Temp Pulse Pulse Pulse Pulse Resp BP 06/28/18 08:00 97.6 F 65 18 06/28/18 03:56 98.2 F 50 L 15 06/28/18 03:27 15 06/27/18 22:42 15 06/27/18 22:16 98.1 F 62 15 06/27/18 21:30 55 L 16 105/74 06/27/18 21:00 53 L 14 110/74 06/27/18 20:30 55 L 16 100/75 06/27/18 20:00 54 L 16 102/82 06/27/18 19:30 52 L 16 94/62 06/27/18 17:39 58 L 13 109/73 06/27/18 16:00 64 16 107/62 06/27/18 15:50 62 13 107/62 06/27/18 15:40 63 16 110/61 06/27/18 15:30 64 14 112/67 06/27/18 15:20 61 16 112/67 06/27/18 15:10 62 16 109/68 06/27/18 15:00 77 27 H 103/64 06/27/18 14:50 71 20 103/64 06/27/18 14:34 59 L 06/27/18 14:30 06/27/18 14:25 59 L 06/27/18 14:20 06/27/18 14:10 111/72 06/27/18 14:04 97.7 F 56 L 16 111/72 06/27/18 14:00 61 12 BP Pulse Ox 06/28/18 08:00 113/79 96 06/28/18 03:56 91/54 96 06/28/18 03:27 06/27/18 22:42 06/27/18 22:16 116/70 99 06/27/18 21:30 93 L 06/27/18 21:00 93 L 06/27/18 20:30 97 06/27/18 20:00 95 06/27/18 19:30 92 L 06/27/18 17:39 97 06/27/18 16:00 93 L 06/27/18 15:50 90 L 06/27/18 15:40 89 L 06/27/18 15:30 86 L 06/27/18 15:20 90 L 06/27/18 15:10 94 L 06/27/18 15:00 99 06/27/18 14:50 93 L 06/27/18 14:34 06/27/18 14:30 99 06/27/18 14:25 06/27/18 14:20 98 06/27/18 14:10 06/27/18 14:04 96 06/27/18 14:00 96 Intake and Output 06/27/18 06/28/18 06/28/18 22:59 06:59 14:59 Other: Voiding Method Toilet Toilet Toilet # Voids 2 Results 06/28/18 08:41 06/28/18 08:41 Cardiac Enzymes 06/27/18 06/27/18 06/27/18 Range/Units 14:13 14:13 20:56 AST 21 (14-36) U/L Troponin I <0.012 <0.012 (0.000-0.034) ng/mL 06/28/18 Range/Units 01:42 AST (14-36) U/L Troponin I <0.012 (0.000-0.034) ng/mL Coagulation 06/27/18 Range/Units 14:13 PT 10.1 (9.0-12.0) sec APTT 25.5 (22.0-30.0) sec CBC 06/27/18 06/28/18 Range/Units 14:13 08:41 WBC 7.6 5.5 (3.8-10.6) k/uL RBC 4.46 4.32 (3.80-5.40) m/uL Hgb 13.0 12.8 (11.4-16.0) gm/dL Hct 39.0 38.7 (34.0-46.0) % Plt Count 303 267 (150-450) k/uL Comprehensive Metabolic Panel 06/27/18 06/28/18 Range/Units 14:13 08:41 Sodium 139 140 (137-145) mmol/L Potassium 4.2 4.5 (3.5-5.1) mmol/L Chloride 109 H 112 H (98-107) mmol/L Carbon Dioxide 23 19 L (22-30) mmol/L BUN 12 11 (7-17) mg/dL Creatinine 0.75 0.83 (0.52-1.04) mg/dL Glucose 102 H 108 H (74-99) mg/dL Calcium 9.5 9.2 (8.4-10.2) mg/dL AST 21 (14-36) U/L ALT 24 (9-52) U/L Alkaline Phosphatase 73 (38-126) U/L Total Protein 6.8 (6.3-8.2) g/dL Albumin 3.9 (3.5-5.0) g/dL Current Medications Generic Name Dose Route Start Last Admin Trade Name Freq PRN Reason Stop Dose Admin Acetaminophen 500 mg 06/27/18 19:04 Tylenol Tab PO Q6HR PRN Fever and/ or Pain Alprazolam 0.25 mg 06/27/18 19:04 Xanax PO TID PRN Anxiety Heparin Sodium (Porcine) 5,000 unit 06/27/18 21:00 06/28/18 10:09 Heparin SQ 5,000 unit Q12HR KATTY Administration Hydromorphone HCl 0.5 mg 06/27/18 16:43 06/28/18 10:16 Dilaudid IVP 0.5 mg Q3HR PRN Administration Moderate Pain Dobutamine HCl/Dextrose 500 mg 250 mls @ 23.4 mls/hr 06/28/18 10:16 / IV Solution IV 06/28/18 20:57 .[id number] ONE Protocol 10 MCG/KG/MIN Naloxone HCl 0.2 mg 06/27/18 16:43 Narcan IV Q2M PRN Opioid Reversal Ondansetron HCl 4 mg 06/27/18 16:43 06/27/18 20:40 Zofran IVP 4 mg Q8HR PRN Administration Nausea And Vomiting Pantoprazole Sodium 40 mg 06/28/18 09:00 06/28/18 10:09 Protonix IV 40 mg DAILY KATTY Administration Polyethylene Glycol/Electrolytes 4,000 ml 06/28/18 16:00 Golytely Lavage PO 06/28/18 16:01 ONCE ONE Temazepam 15 mg 06/27/18 19:04 06/27/18 23:05 Restoril PO 15 mg HS PRN Administration Insomnia Intake and Output 06/27/18 06/28/18 06/28/18 22:59 06:59 14:59 Other: Voiding Method Toilet Toilet Toilet # Voids 2 06/28/18 08:41 06/28/18 08:41
[2018-06-28 13:15] LABS: Cholesterol 163 mg/dL (<200); HDL Cholesterol 52 mg/dL (40-60); LDL Cholesterol,Calculated 77 mg/dL (0-99); Triglycerides 171 mg/dL (<150)
--- NOTE | 2018-06-28 14:52 | PN ---
PROGRESS NOTE DATE OF SERVICE: 06/28/2018 This is a 67-year-old woman who was admitted with chest pain, also had a stress test today. The stress test is reported as showing no evidence of any stress echo, essentially no evidence of reversible ischemia. The patient also had diarrhea, abdominal discomfort and Gastroenterology planning EGD and colonoscopy tomorrow. A 2D echo with Doppler was also done which showed ejection fraction was 50% to 60% and mild valvular abnormalities. The patient will be closely monitored at this time. PAST MEDICAL HISTORY: Reviewed. REVIEW OF SYSTEMS: CARDIOVASCULAR: No angina. RESPIRATION: As mentioned earlier. GI: As mentioned earlier. : As mentioned earlier. NERVOUS SYSTEM: No focal deficits. CURRENT MEDICATIONS ARE REVIEWED, INCLUDE: 1. Tylenol p.r.n. 2. Xanax 0.5 t.i.d. 3. Dobutamine. 4. Heparin. 5. Dilaudid. 6. Narcan. 7. Protonix. 8. Restoril. PHYSICAL EXAM: Patient is alert and oriented x3. Pulse is 57, blood pressure 120.75, respiration 18, temperature 97.7. Pulse ox 97% on room air. HEENT: Conjunctivae normal. NECK: No jugular venous distension. RESPIRATION: Breath sounds diminished at the bases, no rhonchi, no crackles. ABDOMEN: Soft, nontender. No mass palpable. LEGS: No edema, no swelling. NERVOUS SYSTEM: No focal deficits. LABS: WBC is 5.9, hemoglobin is 12.8, sodium 140, potassium 4.5 and triglycerides 171. ASSESSMENT: 1. Chest pain, possibly musculoskeletal. Negative stress echo. 2. Acute on chronic diarrhea with abdominal symptoms, rule out infective diarrhea. 3. History of DJD. 4. Sleep apnea. 5. Bradycardia stent, status post pacemaker. 6. History of coronary artery disease with cardiac cath and atherectomy previously. 7. History of pacemaker. 8. Tonsillectomy. 9. Social stressors. 10.History of nicotine dependence. RECOMMENDATION: Recommend to continue current management and symptomatic treatment. Closely follow with Cardiology. Gastroenterology consultation possible, endoscopes. Further recommendations to follow. MMODL / IJN: [id number] /
[2018-06-28] MEDS ORDERED: PEG 3350-NA SULF,BICARB,CL/KCL 4,000 ML BOTTLE PO ONE (16:00)
[2018-06-28] MEDS ORDERED: LACTATED RINGERS 1,000 ML IV SCH (20:30)
[2018-06-29 03:46] VITALS: RESP 18
[2018-06-29] MEDS: PANTOPRAZOLE 40 MG/10 ML VIAL IV SCH (09:19)
[2018-06-29] MEDS: HEPARIN SODIUM,PORCINE 5,000 UNIT/ML 1 ML VIAL SQ SCH (09:19)
--- NOTE | 2018-06-29 11:51 | P.PN ---
Progress Note - Text Michael from [employer] called with pacemaker interrogation information. She has not been checked since 2015 and is pacing only 6% of the time. There are multiple brief episodes of atrial tachycardia less than 10 seconds in duration. No other acute arrhythmia. Battery life greater than 5 years.
[2018-06-29] MEDS ORDERED: PROPOFOL 10 MG/ML 20 ML VIAL IV ONE (14:36)
[2018-06-29] MEDS ORDERED: IV FLUID CONTINUATION 1,000 ML IV ONE ×2 (14:42)
--- NOTE | 2018-06-29 15:38 | P.PCN ---
Date of Procedure: 06/29/18 Description of Procedure: Brief history: 67-year-old female with a history of pacemaker bradycardia, COPD, CAD with angioplasty sleep apnea CPAP chronic back pain admitted with multiple complaints including chest pain epigastric discomfort as well as postprandial nonbloody diarrhea several times a day for the last 4-6 weeks. EKG showed no acute abnormality. First the troponins were negative. CT showed no evidence of pulmonary embolus and. Patient states cardiology is evaluating her pacemaker. In regards to diarrhea patient's been having multiple nonbloody bowel movements especially after eating for 4-6 weeks' duration with minimal abdominal discomfort. She cares for 4 grandchildren makes it difficult to seek medical care in the outpatient setting. She has no history of diarrhea in fact she has a history of constipation. In regards to her epigastric chest pain she's had increased GERD-like symptoms preceding admission. No emesis. No current PPI therapy. No weight loss. She is a history of EGD colonoscopy but it's remote at least 10 years ago. Denies fever or chills. No recent travels. No recent antibiotics. No sick contacts. Procedure performed: Esophagogastroduodenoscopy with biopsy Colonoscopy with polypectomy Estimated blood loss: Minimal. Preoperative diagnosis: Change in bowel habits, epigastric abdominal pain Anesthesia: MAC Procedure: After informed consent was obtained from the patient was brought into the endoscopy unit and IV sedation was administered by anesthesia under continuous monitoring. Initially upper endoscopy was done. The Olympus GF 190 video endoscope was inserted inserted into the mouth and esophagus intubated without any difficulty and was gradually advanced into the stomach and duodenum and carefully examined. The bulb and second part of the duodenum appeared normal with biopsies taken. The scope was then withdrawn into the stomach adequately insufflated with air and upon careful examination the antrum and body, cardia and fundus appeared grossly normal except for some mild scattered erythema in the antrum and body suggestive of mild gastritis which was biopsied. The scope was then withdrawn into the esophagus. The GE junction was located at 37 cm to the incisors. A patent nonobstructing Schatzki ring was seen in the distal esophagus which was easily traversed. Otherwise see esophagus appeared regular with no erythema erosions or ulcerations. Patient tolerated the procedure well. At this time the patient continued to remain sedation. Initial digital rectal examination was normal. Olympus CF 190 video colonoscope was then inserted into the rectum and gradually advanced to the cecum without any difficulty. Careful examination was performed as the scope was gradually being withdrawn. The prep was excellent. The cecum, ascending colon, transverse colon, descending colon, sigmoid colon and rectum appeared normal. A diminutive sessile transverse colon polyp measuring 2 mm was removed with cold forcep polypectomy. A diminutive sessile 3 mm sigmoid polyp was removed with cold forcep polypectomy. Retroflexion was performed in the rectum and no lesions were noted, mild internal hemorrhoids were seen. Patient tolerated the procedure well. Impression: 1. Mild gastritis, antrum and body biopsied. Duodenal biopsies. 2. Diminutive polyps from the transverse colon and sigmoid colon removed with cold forcep polypectomy. Mild internal hemorrhoids. Recommendations: Findings of this examination were discussed with the patient as well as the nursing staff. Okay to resume diet. Okay for discharge from gastroenterology standpoint. Await pathology from biopsies. Anticipate repeat colonoscopy in 5 years given finding of polyps. Continue symptomatic management of loose stool.
[2018-06-29] MEDS: HYDROmorphone 0.5 MG/0.5 ML SYRINGE IVP PRN (16:42)
[2018-06-29 17:26] VITALS: BP 138/67
[2018-06-29 17:27] VITALS: PULSE 52; TEMP 97
--- NOTE | 2018-06-30 07:39 | DS ---
DISCHARGE SUMMARY DATE OF SERVICE: 06/29/2018. FINAL DIAGNOSES: 1. Chest pain possibly musculoskeletal with negative stress echo. 2. Subacute diarrhea, status post EGD, colonoscopy showing mild gastritis and diminutive polyps. Biopsies were taken. 3. History of degenerative joint disease. 4. Sleep apnea. 5. Bradycardia and status post pacemaker. 6. History of coronary artery disease with cardiac cath and atherectomy previously. 7. History of pacemaker. 8. Tonsillectomy. 9. Social stressors. 10.History of nicotine dependence. DISCHARGE DISPOSITION: The patient will be discharged in stable condition with guarded prognosis. HISTORY OF PRESENT ILLNESS: This 67-year-old woman presented with multiple complex medical issues including chest pain and diarrhea which is subacute in character was monitored closely. Myocardial infarction ruled out. Cardiac stress test negative. The pacemaker interrogation showed pacing only 6% of the time. Multiple brief episodes of atrial tachycardia was seen. Dr. Graibay performed EGD and colonoscopy with findings as above. Recommended outpatient followup. On exam, vital signs are stable. Cardiovascular: S1, S2. Abdomen soft. Central nervous system: No focal deficits. DISCHARGE ADVICE AND MEDICATIONS: 1. Diet is cardiac diet. 2. Activity limited until follow up. 3. Follow up with Dr. Pradhan in 1-2 days. 4. Follow up with cardiology as recommended. Further recommendations to follow. MMODL / IJN: [id number] /
== END 2018-06-29 19:17 | disposition home health service (06) | DRG 392 ==
LOC: EC 13:51 → 1SOBS 16:43 → OBSVTOIN 16:43 → INTOOBSV 16:43 → 1SOBS 20:41 → OBSVTOIN 06-28 13:02
PROVIDERS: ADMIT Hospitalist; ATTEND Hospitalist
PROC: 0DBN8ZX Excision of Sigmoid Colon, Via Natural or Artificial Opening Endoscopic, Diagnostic (ICD-10-PCS; 2018-06-29)
PROC: 0DB98ZX Excision of Duodenum, Via Natural or Artificial Opening Endoscopic, Diagnostic (ICD-10-PCS; principal; 2018-06-29 14:00)
PROC: 0DB78ZX Excision of Stomach, Pylorus, Via Natural or Artificial Opening Endoscopic, Diagnostic (ICD-10-PCS; 2018-06-29 14:00)
PROC: 0DBL8ZX Excision of Transverse Colon, Via Natural or Artificial Opening Endoscopic, Diagnostic (ICD-10-PCS; 2018-06-29 14:00)
DX: K29.70 Gastritis, unspecified, without bleeding (principal); I47.1 Supraventricular tachycardia; J43.9 Emphysema, unspecified; R07.89 Other chest pain; G47.33 Obstructive sleep apnea (adult) (pediatric); M19.90 Unspecified osteoarthritis, unspecified site; F17.200 Nicotine dependence, unspecified, uncomplicated; R00.1 Bradycardia, unspecified; I25.10 Atherosclerotic heart disease of native coronary artery without angina pectoris; M54.9 Dorsalgia, unspecified; G89.29 Other chronic pain; K22.8 Other specified diseases of esophagus; K52.9 Noninfective gastroenteritis and colitis, unspecified; D12.3 Benign neoplasm of transverse colon; D12.5 Benign neoplasm of sigmoid colon; K64.8 Other hemorrhoids; F43.9 Reaction to severe stress, unspecified; E66.9 Obesity, unspecified; Z68.25 Body mass index [BMI] 25.0-25.9, adult; Z91.19 Patient's noncompliance with other medical treatment and regimen; Z90.710 Acquired absence of both cervix and uterus; Z95.0 Presence of cardiac pacemaker; Z88.5 Allergy status to narcotic agent; Z88.0 Allergy status to penicillin; Z88.8 Allergy status to other drugs, medicaments and biological substances; Z82.5 Family history of asthma and other chronic lower respiratory diseases; Z80.0 Family history of malignant neoplasm of digestive organs; Z82.49 Family history of ischemic heart disease and other diseases of the circulatory system
CPT/HCPCS: 36415; 43239; 45380; 45385; 71046; 71275; 80048; 80053; 80061; 81003; 83630; 83690; 83735; 83880; 84484; 85025; 85610; 85730; 87045; 87046; 87324; 87329; 93005; 93306; 93351; 94640; 96374; 96375; 96376; 99285